=== PATIENT | male | born 1985 | race Caucasian/White ===

== ENCOUNTER 2017-01-17 21:21 | Emergency (ER) | payer OTHER ==
[~2017-01-17] VITALS: Ht 188 cm; Wt 81.6 kg
[~2017-01-17 21:21] MED LIST: MEDROL4 M2 PO; MULTI-DAY VITA1 EACH PO; PERCOCET 5-3251 EACH PO; POTASSIUM GLUCO99 MG PO
[2017-01-17 21:27] VITALS: BP 157/88
--- NOTE | 2017-01-17 22:41 | ED THROAT/DENTAL COMPLAINT ---
History of Present Illness General Chief Complaint: Sore Throat, Dental Pain Stated Complaint: SENT BY WALK-IN FOR WORSENING STREP THROAT ?ABSCES Source: patient Exam Limitations: no limitations Vital Signs & Intake/Output Vital Signs & Intake/Output Vital Signs Date Time Temp Pulse Resp B/P B/P Pulse O2 O2 Flow FiO2 Mean Ox Delivery Rate 01/17 2127 98.2 113 18 157/88 97 Room Air ED Intake and Output 01/18 0000 01/17 1200 Intake Total Output Total Balance Patient 180 lb Weight Allergies Coded Allergies: NO KNOWN ALLERGIES (02/10/11) Reconcile Medications Amoxicillin/Potassium Clav (Augmentin 875-125 Tablet) 875 MG-125 MG TABLET 1 TAB PO BID pharyngitis Azithromycin 250 MG TABLET 1 DP PO AD ANTIBIOTIC (Reported) 2 the first day followed by 1 for days 2-5 Biotin (Unknown Strength) TABLET (Unknown Dose) PO DAILY SUPPLEMENT (Reported ) Cider Vinegar (Apple Cider Vinegar) (Unknown Strength) TABLET (Unknown Dose) PO DAILY SUPPLEMENT (Reported) Multivitamin (Multi-Day Vitamins) 1 EACH TABLET 1 TAB PO DAILY SUPPLEMENT ( Reported) Naproxen 500 MG TABLET 1 TAB PO BID PAIN (Reported) Potassium Gluconate (Unknown Strength) TABLET (Unknown Dose) PO DAILY SUPPLEMENT (Reported) Prednisone 50 MG TABLET 1 TAB PO DAILY pharyngitis Triage Note: PT REFERED TO ED FOR EVALUATION HE HAS BEEN TREATED WITH AZYTHROMYCIN FOR +STREP HOWEVER HE IS NOT GETTING BETTER. Triage Nurses Notes Reviewed? yes Onset: Gradual Duration: day(s): Timing: single episode today Injury Environment: home Severity: moderate Modifying Factors: Improves With: rest. Associated Symptoms: sore throat HPI: 31-year-old gentleman history of strep throat. He states that he was diagnosed 4 days ago. He was started on azithromycin. He was diagnosed at a walk-in center based on a rapid strep test. He has been tolerating the antibiotics without problem. However, he notes that he continues to have a sore throat. He was referred by walk in center for consideration of an abscess. He has no trouble swallowing or breathing, but notes that it is painful to do so. He has no fever or chills dyspnea or abdominal pain. Past History Travel History Traveled to [place] past 21 day No Medical History Any Pertinent Medical History? see below for history Neurological: NONE EENT: NONE Cardiovascular: NONE Respiratory: NONE Gastrointestinal: NONE Hepatic: NONE Renal: NONE Musculoskeletal: NONE Psychiatric: NONE Endocrine: NONE Blood Disorders: NONE Surgical History Surgical History: none Psychosocial History Who do you live with Family Services at Home None What is your primary language Hebrew Tobacco Use: Never used Family History Hx Contributory? No Review of Systems Review of Systems Constitutional: Reports: no symptoms. EENTM: Reports: no symptoms. Respiratory: Reports: no symptoms. Cardiovascular: Reports: no symptoms. GI: Reports: no symptoms. Genitourinary: Reports: no symptoms. Musculoskeletal: Reports: no symptoms. Skin: Reports: no symptoms. Neurological/Psychological: Reports: no symptoms. Hematologic/Endocrine: Reports: no symptoms. Immunologic/Allergic: Reports: no symptoms. All Other Systems: Reviewed and Negative Physical Exam Physical Exam General Appearance: well developed/nourished, mild distress Head: atraumatic, normal appearance Ears: Bilateral: canal normal. Nose: normal inspection Mouth/Throat: symmetrical pharyngeal erythema without exudate. There is no uvular deviation suggestive of abscess (.) Neck: normal inspection, supple Cardiovascular/Respiratory: normal breath sounds Back: normal inspection, normal range of motion Neurologic/Psych: no motor/sensory deficits, awake, alert, oriented x 3 Skin: intact, normal color, warm/dry Core Measures ACS in differential dx? No Severe Sepsis Present: No Septic Shock Present: No Progress Differential Diagnosis: epiglottitis, carolynn-tonsillar abscess, stomatitis/ gingivitis, strep pharyngitis Plan of Care: Orders Procedure Date/time Status THROAT CULTURE W/QUICK STREP 01/17 2131 Active Current Medications Sig/Ann Start time Last Medication Dose Stop Time Status Admin Dexamethasone 8 MG DAILY 01/18 1000 CAN (Decadron) Dextrose/Water 50 ML (D5W) Dexamethasone 8 MG ONCE ONE 01/17 2300 CAN (Decadron) 01/17 230 Diagnostic Imaging: Viewed by Me: Radiology Read. Discussed w/RAD: Radiology Read. Radiology Impression: soft tissue neck... normal.. full report below. Comments: PATIENT: BARBARA TAYLOR PRESENT AGE: 31 PATIENT ACCOUNT NO: [id number] : 83 LOCATION: [facility] ORDERING PHYSICIAN: HENRY PECK MD SERVICE DATE: 01/17/17 EXAM TYPE: RAD - XRY-SOFT TISSUE NECK EXAMINATION: XR SOFT TISSUE NECK CLINICAL INDICATION: Difficulty swallowing COMPARISON: CT neck January 2011 TECHNIQUE: 2 views of the soft tissue neck were obtained. FINDINGS: Soft tissue films of the neck demonstrate a normal larynx, pharynx and upper trachea. No soft tissue swelling or opaque foreign body is demonstrated. IMPRESSION: Unremarkable examination. DICTATED BY: AAKASH DIANA MD DATE/TIME DICTATED:01/17/172347 STAFFING ASSISTANT:BRITTANI DATE/TIME TRANSCRIBED:01/17/172347 CONFIDENTIAL, DO NOT COPY WITHOUT APPROPRIATE AUTHORIZATION. <Electronically signed in Other Vendor System> SIGNED BY: AAKASH DIANA MD 01/17 0346 Departure Departure Disposition: HOME OR SELF CARE Condition: Stable Clinical Impression Primary Impression: Pharyngitis Referrals: PATIENT HAS NO PRIMARY CARE DR (PCP/Family) Departure Forms: Customer Survey General Discharge Information Prescriptions: Current Visit Scripts Prednisone 1 TAB PO DAILY #3 TAB Amoxicillin/Potassium Clav (Augmentin 875-125 Tablet) 1 TAB PO BID #20 TAB Comments 01/18/17, 0:30... discussed with dr. domingo who will see patient tomorrow.
[2017-01-17] MEDS ORDERED: AZITHROMYCIN250 M1 PO (23:11)
[2017-01-17] MEDS ORDERED: APPLE CIDER VI500 MG PO (23:11)
[2017-01-17] MEDS ORDERED: NAPROXEN500 M2 PO (23:11)
[2017-01-17] MEDS ORDERED: BIOTIN5 M2 PO (23:11)
--- NOTE | 2017-01-17 23:53 | RADIOLOGY REPORT ---
EXAMINATION: XR SOFT TISSUE NECK CLINICAL INDICATION: Difficulty swallowing COMPARISON: CT neck January 2011 TECHNIQUE: 2 views of the soft tissue neck were obtained. FINDINGS: Soft tissue films of the neck demonstrate a normal larynx, pharynx and upper trachea. No soft tissue swelling or opaque foreign body is demonstrated. IMPRESSION: Unremarkable examination.
[2017-01-18] MEDS ORDERED: PREDNISONE50 M1 PO (00:34)
[2017-01-18] MEDS ORDERED: AUGMENTIN 875-1 EACH PO (00:34)
== END 2017-01-18 00:59 ==
LOC: ERH 21:21
DX: J02.9 Acute pharyngitis, unspecified (principal)
CPT/HCPCS: 70360; 96374; 96375; J1100